=== PATIENT | female | born 1990 | race Caucasian/White ===

== ENCOUNTER 2018-01-24 09:31 | Outpatient (CLI) | payer OTHER ==
--- NOTE | 2018-01-24 16:42 | RAD ---
THORACIC SPINE TWO VIEW: 01/24/18 AP and lateral views show a normal appearing spine. No fracture, disc space narrowing or bony anomaly was seen. IMPRESSION: No significant finding. POS: HOME
--- NOTE | 2018-01-24 16:42 | RAD ---
CERVICAL SPINE: DATE: 01/24/2018. FINDINGS: AP, lateral, and open-mouth views are provided. No fracture or dislocation was seen. The disk space s are normal in height and no bony anomalies were seen. At most, there may be slight straightening o f the cervical spine which could be due to spasm. The C1 to dens distance is normal and the soft tis sues are normal in thickness. IMPRESSION: Mild straightening of the cervical spine, exam otherwise unremarkable. POS: HOME
== END 2018-01-24 09:32 | disposition home or self-care (01) ==
LOC: BURRAD 09:31
PROVIDERS: ATTEND Physician Assistant
DX: M54.6 Pain in thoracic spine (principal); R20.2 Paresthesia of skin
CPT/HCPCS: 72040; 72070